=== PATIENT | female | born 1955 | race Caucasian/White ===

== ENCOUNTER → 2019-10-16 | Outpatient (CLI) | payer BC ==
[~2019-10-16] MED LIST: ACYC200 PO; ALEN70; CODE30 PO; CYCL10 PO; ENBREL; FROVA PO; GABA100 PO; HYDACE5 PO; IBUP800; IRBHYD300; LIDO5TO TOP; LIDO5TP TOP; LOSA50; META800 PO; METTREX2.5; NISO10ER; OXYC5; RABE20; REMICADE; TRAM50 PO; ZOLP10; ZOLP5 PO; [UNRECOGNIZED DRUG - REMARK]
== END | disposition home or self-care (01) ==
LOC: LAB 12:02 → LAB SHORT 12:02
DX: M05.79 Rheumatoid arthritis with rheumatoid factor of multiple sites without organ or systems involvement (principal); R19.7 Diarrhea, unspecified
CPT/HCPCS: 83993; 87177; 87209; 87329

== ENCOUNTER 2023-07-20 02:47 | Day surgery (SDC) | payer MEDICARE, BC ==
[2023-07-20] MEDS ORDERED: CERTOLIZUMAB PEGOL 400 MG/2 ML SC SCH (08:50)
[2023-07-20 14:19] VITALS: BP 157/95
[2023-07-20] MEDS ORDERED: AMLODIPINE BESYL5 MG PO (14:27)
[2023-07-20] MEDS ORDERED: Cyclobenzaprine5 MG PO (14:28)
[2023-07-20] MEDS ORDERED: HYDROCODONE-AC1 EA19 PO (14:28)
[2023-07-20] MEDS ORDERED: ACYC200 PO (14:28)
[2023-07-20] MEDS ORDERED: CYMBALTA30 M2 PO (14:29)
[2023-07-20] MEDS ORDERED: Inderal60 MG PO (14:30)
[2023-07-20] MEDS ORDERED: NEURONTIN300 MG PO (14:31)
== END 2023-07-20 15:00 | disposition home or self-care (01) ==
LOC: ATC 02:47
DX: M05.79 Rheumatoid arthritis with rheumatoid factor of multiple sites without organ or systems involvement (principal); E83.9 Disorder of mineral metabolism, unspecified; M54.32 Sciatica, left side; Z79.899 Other long term (current) drug therapy
CPT/HCPCS: 96372

== ENCOUNTER 2024-10-31 03:48 | Day surgery (SDC) | payer MEDICARE, BC ==
[~2024-10-31] VITALS: Wt 61.8 kg
[~2024-10-31 03:48] MED LIST changes: +AMLODIPINE BESYL5 MG PO; +CYMBALTA30 M2 PO; +Cyclobenzaprine5 MG PO; +HYDROCODONE-AC1 EA19 PO; +Inderal60 MG PO; +NEURONTIN300 MG PO
[2024-10-31 14:00] VITALS: BP 139/71
[2024-10-31] MEDS ORDERED: Abatacept/Maltose 750 MG in NS 100 ML IV SCH (14:10)
--- NOTE | 2024-10-31 14:20 | NUR ---
PT DECLINES PRN PRE-MEDS
== END 2024-10-31 15:17 | disposition home or self-care (01) ==
LOC: ATC 03:48
DX: M05.79 Rheumatoid arthritis with rheumatoid factor of multiple sites without organ or systems involvement (principal); Z88.0 Allergy status to penicillin; Z88.8 Allergy status to other drugs, medicaments and biological substances; Z79.899 Other long term (current) drug therapy
CPT/HCPCS: 96365; J0129-JA

== ENCOUNTER 2024-11-28 00:07 | Day surgery (SDC) | payer MEDICARE, BC ==
[~2024-11-28] VITALS: Wt 63.2 kg
[2024-11-28 14:27] VITALS: BP 116/74
[2024-11-28] MEDS ORDERED: Abatacept/Maltose 750 MG in NS 100 ML IV SCH (14:35)
== END 2024-11-28 15:36 | disposition home or self-care (01) ==
LOC: ATC 00:07
DX: M05.79 Rheumatoid arthritis with rheumatoid factor of multiple sites without organ or systems involvement (principal); Z88.0 Allergy status to penicillin; Z88.8 Allergy status to other drugs, medicaments and biological substances; Z79.899 Other long term (current) drug therapy
CPT/HCPCS: 96365; J0129-JA

== ENCOUNTER 2025-01-27 00:45 | Day surgery (SDC) | payer MEDICARE, BC ==
[~2025-01-27] VITALS: Wt 62.7 kg
[2025-01-27 15:23] VITALS: BP 149/91
[2025-01-27] MEDS ORDERED: ABAT250V (15:33)
[2025-01-27] MEDS ORDERED: Abatacept/Maltose 750 MG in NS 100 ML IV SCH (15:35)
--- NOTE | 2025-01-27 16:55 | NUR ---
AFTER VISIT SUMMARY FAXED TO DR OSORIO PER ORDER REQUEST
== END 2025-01-27 16:36 | disposition home or self-care (01) ==
LOC: ATC 00:45
DX: M05.79 Rheumatoid arthritis with rheumatoid factor of multiple sites without organ or systems involvement (principal); Z88.0 Allergy status to penicillin; Z88.8 Allergy status to other drugs, medicaments and biological substances
CPT/HCPCS: 96365; 96413; J0129-JA

== ENCOUNTER 2025-02-25 02:48 | Day surgery (SDC) | payer MEDICARE, BC ==
[~2025-02-25] VITALS: Wt 62.0 kg
[~2025-02-25 02:48] MED LIST changes: +ABAT250V
[2025-02-25 13:58] VITALS: BP 149/96
[2025-02-25] MEDS ORDERED: Abatacept/Maltose 750 MG in NS 100 ML IV SCH (14:05)
== END 2025-02-25 15:08 | disposition home or self-care (01) ==
LOC: ATC 02:48
DX: M05.79 Rheumatoid arthritis with rheumatoid factor of multiple sites without organ or systems involvement (principal); Z88.0 Allergy status to penicillin; Z88.8 Allergy status to other drugs, medicaments and biological substances
CPT/HCPCS: 96413; J0129-JA